=== PATIENT | female | born 1935 | race Caucasian/White ===

== ENCOUNTER 2024-04-08 12:01 | Emergency (ER) | payer MEDICARE, OTHER, SELFPAY ==
--- NOTE | ~2024-04-08 | XR_ITS ---
EXAMINATION: XR foot LT min 3V DATE: 04/08/2024 12:53 INDICATION: Left foot open wound. TECHNIQUE: 4 views of left foot were obtained. COMPARISON: None. FINDINGS: Bone alignment is normal. No fracture. There is mild osteoarthritis of first metatarsophala ngeal joint and some of the interphalangeal joints. IMPRESSION: 1. Mild polyarticular osteoarthritis. Reviewed, dictated and finalized at location A. DELIVERY DRIVER
[2024-04-08 12:02] VITALS: BP 142/88; PULSE 98; RESP 16; TEMP 36.4; O2SAT 98
--- NOTE | 2024-04-08 12:23 | ED_ITS ---
HPI - General Adult General Chief complaint: Wound/Laceration Stated complaint: foot wound Time Seen by Provider: 04/08/24 12:03 History of Present Illness HPI narrative: 88-year-old female present to the emergency department for evaluation for injury to her left foot. Patient is a resident in a memory care unit. Care facility did fine and injury to her left foot. Patient is unaware of how she injured her foot. Injury resulted in a large skin tear. Patient denies any bony pain of the foot. Patient denies any other pain or injury. Related Data Allergies Allergy/AdvReac Type Severity Reaction Status Date / Time amoxicillin Allergy Unknown Verified 04/08/24 12:39 ceftriaxone Allergy Unknown Verified 04/08/24 12:39 codeine Allergy Unknown Verified 04/08/24 12:39 iodine Allergy Unknown Verified 04/08/24 12:39 lisinopril Allergy Unknown Verified 04/08/24 12:39 Sulfa (Sulfonamide Allergy Unknown Verified 04/08/24 12:39 Antibiotics) Review of Systems Review of Systems: All systems reviewed & are unremarkable except as noted in HPI and below Exam Narrative: APPEARANCE: Well appearing, no pain, no distress, well-nourished. HEAD: normocephalic, atraumatic. EYES: PERRLA/EOMI, conjunctivae clear. NOSE: Normal no drainage EARS:TMS clear with good light reflex. THROAT: Pharynx clear, no exudate. NECK: Supple. No adenopathy, no masses. RESPIRATORY: Airway patent, respirations nonlabored. Clear to auscultation bilaterally, no rales, rhonchi, wheezing. CARDIOVASCULAR: Regular rate and rhythm without murmurs rubs or gallops. ABDOMINAL: Soft, nontender, nondistended, normal bowel sounds MUSCULOSKELETAL: Moves all extremities. Strength/ROM intact, No edema, No calf tenderness. NEURO: Alert. Cranial nerves II through XII intact. Good gait. Good coordination SKIN: Skin tear to right foot PSYCHIATRIC: Normal affect/mood. Course Vital Signs Vital signs: Vital Signs Temperature 97.6 F 04/08/24 12:02 Pulse Rate 98 04/08/24 12:02 Respiratory Rate 16 04/08/24 12:02 Blood Pressure 142/88 H 04/08/24 12:02 Pulse Oximetry 98 04/08/24 12:02 Oxygen Delivery Room Air 04/08/24 12:02 Temperature 97.6 F 04/08/24 12:02 Pulse Rate 98 04/08/24 12:02 Respiratory Rate 16 04/08/24 12:02 Blood Pressure 121/79 04/08/24 12:30 Pulse Oximetry 100 04/08/24 12:30 Oxygen Delivery Room Air 04/08/24 12:02 Procedures Laceration Laceration 1: Time: 13:13 Site: lower extremity Side (If applicable): left Size (cm): 7 Description: flap and irregular Pre-repair: wound explored ====== Skin Level ====== Skin layer closed with: steri strips ====== Subcutaneous Layer ====== ====== Muscle Layer ====== ====== Tendon Layer ====== Medical Decision Making MDM Narrative Medical decision making narrative: 88-year-old female present to the emergency department for evaluation for a skin tear to her left foot. Patient does complain of tenderness to palpation. X-ray was negative for acute fracture or dislocation. Patient's skin was too thin to be sutured. Skin was repaired using Steri-Strips. Family also requeste d a repeat UA and baseline labs as she had just had abnormal labs as outpatient. Differential Diagnosis Differential Diagnosis: Foot fracture, skin tear Vital Signs Vital Signs: Vital Signs Temperature 97.6 F 04/08/24 12:02 Pulse Rate 98 04/08/24 12:02 Respiratory Rate 16 04/08/24 12:02 Blood Pressure 142/88 H 04/08/24 12:02 Pulse Oximetry 98 04/08/24 12:02 Oxygen Delivery Room Air 04/08/24 12:02 Temperature 97.6 F 04/08/24 12:02 Pulse Rate 98 04/08/24 12:02 Respiratory Rate 16 04/08/24 12:02 Blood Pressure 121/79 04/08/24 12:30 Pulse Oximetry 100 04/08/24 12:30 Oxygen Delivery Room Air 04/08/24 12:02 Lab Data Lab results reviewed: Yes I reviewed the patient's lab results. 04/08/24 13:27 04/08/24 13:27 Labs: Lab Results 04/08/24 Range/Units 13:27 WBC 10.9 H (4.5-10.0) K/mm3 RBC 3.11 L (4.2-5.4) M/mm3 Hgb 10.3 L (12.0-15.0) g/dL Hct 31.2 L (37.0-47.0) % MCV 100.3 H (80-100) fl MCH 33.1 (26-34) pg MCHC 33.0 (32-36) g/dl RDW 12.9 (11.5-14.5) % Plt Count 450 H (150-375) k/mm3 MPV 8.2 (7.4-10.4) fl Immature Gran % (Auto) 0.5 (0-0.5) % Neut % (Auto) 78.6 H (45.5-73.1) % Lymph % (Auto) 10.8 L (18.3-44.2) % [place] % (Auto) 8.9 H (2.6-8.5) % Eos % (Auto) 0.7 (0-4.4) % Baso % (Auto) 0.5 (0.2-1.2) % Lymph # (Auto) 1.18 (0.9-3.2) K/mm3 [place] # (Auto) 1.0 H (0.1-0.6) K/mm3 Eos # (Auto) 0.1 (0-0.3) K/mm3 Baso # (Auto) 0.1 (0.0-0.1) K/mm3 Abs Immat Gran (auto) 0.05 H (0.00-0.031) K/mm3 Absolute Neuts (auto) 8.6 H (1.3-6.7) K/mm3 Absolute Nucleated RBC 0.000 (0.0-0.012) K/mm3 Nucleated RBC % 0.0 (0.0-0.2) % Sodium 125 L (137-145) mmol/L Potassium 5.0 (3.4-5.0) mmol/L Chloride 96 L (98-107) mmol/L Carbon Dioxide 23 (22-30) mmol/L Anion Gap 6 (4-12) mmol/L BUN 31 H (7-17) mg/dL Creatinine 2.80 H (0.7-1.0) mg/dL Estim Creat Clear Calc Not Reportable Estimated GFR 16 L (59 - ) Glucose 95 (65-110) mg/dL Calcium 8.6 (8.4-10.2) mg/dL Total Bilirubin 0.4 (0.2-1.3) mg/dL AST 24 (14-36) U/L ALT 11 (6-35) U/L Alkaline Phosphatase 105 (38-126) U/L Total Protein 7.0 (6.3-8.2) g/dL Albumin 3.4 L (3.5-5.1) g/dL Imaging Data Radiologist's impression: Impressions Foot X-Ray 04/08/24 13:02 IMPRESSION: 1. Mild polyarticular osteoarthritis. Discharge Plan Discharge Clinical Impression: Laceration, CKD (chronic kidney disease) Patient Disposition: Home, Self-Care Condition: Stable Instructions: Antibiotic Form, Chronic Kidney Disease (ED), Steristrips (ED) Additional Instructions: have follow-up with your primary care physician for wound care. Also have follow-up with primary care physician for your renal function. If you have any worsening symptoms please call or return to the emergency department. Follow-up/Referrals: PHYSICIAN NOT ON STAFF,NONSTAFF [Primary Care Provider] -
[2024-04-08 12:30] VITALS: BP 121/79; O2SAT 100
[2024-04-08 13:34] LABS: Basophils Absolute Auto 0.1 K/mm3 (0.0-0.1); Basophils Percent Auto 0.5 % (0.2-1.2); Eosinophils Absolute Auto 0.1 K/mm3 (0-0.3); Eosinophils Percent Auto 0.7 % (0-4.4); Hematocrit 31.2 % (37.0-47.0); Hemoglobin 10.3 g/dL (12.0-15.0); Immature Granulocyte Absolute 0.05 K/mm3 (0.00-0.031); Immature Granulocyte Percent A 0.5 % (0-0.5); Lymphocytes Absolute Auto 1.18 K/mm3 (0.9-3.2); Lymphocytes Percent Auto 10.8 % (18.3-44.2); Mean Corpuscular Hemoglobin 33.1 pg (26-34); Mean Corpuscular Volume 100.3 fl (80-100); Mean Platelet Volume 8.2 fl (7.4-10.4); Monocytes Percent Auto 8.9 % (2.6-8.5); Neutrophils Absolute Auto 8.6 K/mm3 (1.3-6.7); Neutrophils Percent Auto 78.6 % (45.5-73.1); Platelet Count Result 450 k/mm3 (150-375); Red Blood Count 3.11 M/mm3 (4.2-5.4); Red Cell Distribution Width 12.9 % (11.5-14.5); White Blood Count 10.9 K/mm3 (4.5-10.0)
[2024-04-08 13:46] LABS: Alanine Aminotransferase 11 U/L (6-35); Albumin Level 3.4 g/dL (3.5-5.1); Alkaline Phosphatase 105 U/L (38-126); Anion Gap 6 mmol/L (4-12); Aspartate Amino Transferase 24 U/L (14-36); Bilirubin,Total 0.4 mg/dL (0.2-1.3); Blood Urea Nitrogen 31 mg/dL (7-17); Calcium 8.6 mg/dL (8.4-10.2); Carbon Dioxide 23 mmol/L (22-30); Chloride 96 mmol/L (98-107); Estimated Glomerular Filt Rate 16; Glucose 95 mg/dL (65-110); Sodium 125 mmol/L (137-145)
== END 2024-04-08 14:46 | disposition home or self-care (01) ==
PROVIDERS: Emergency Provider Emergency Medicine
DX: S91.312A Laceration without foreign body, left foot, initial encounter (principal); N18.9 Chronic kidney disease, unspecified; M19.072 Primary osteoarthritis, left ankle and foot; X58.XXXA Exposure to other specified factors, initial encounter
CPT/HCPCS: 36415; 73630; 80053; 85025; 99283